=== PATIENT | female | born 1975 | race Asian ===

== ENCOUNTER 2021-09-19 09:13 | Emergency (ER) | payer BC ==
[2021-09-19] MEDS ORDERED: Meclizine HCl 25 MG TAB ONE (09:40)
[2021-09-19] MEDS ORDERED: Dexamethasone 10 MG/ML VIAL ONE (09:40)
[2021-09-19] MEDS ORDERED: Lorazepam 2 MG/ML VIAL ONE (09:41)
[2021-09-19] MEDS ORDERED: Ondansetron PF 4 MG/2 ML Vial ONE (09:41)
[2021-09-19 09:48] LABS: BHCG - Serum Negative (NEGATIVE); Pregs Control Background? CLEAR/WHITE (CLR/WHITE); Pregs Control Bar Appear? YES (CONTROL BAR)
[2021-09-19 09:55] LABS: #Basophils 0.1 10x3/uL (0.0-0.2); #Eosinphils 0.2 10x3/uL (0.0-0.5); #Monocytes 0.6 10x3/uL (0.0-1.1); #Neutrophils 2.7 10x3/uL (1.5-8.4); %Basophils 0.8 % (0.0-2.0); %Eosinophils 2.6 % (0.0-6.0); %Monocytes 9.7 % (0.0-10.0); %Neutrophils 43.7 % (40.0-75.0); Hemoglobin 10.3 g/dL (12.0-15.5); Mean Corpuscular HGB CONC 29.3 g/dL (32.0-36.0); Mean Corpuscular Hemoglobin 16.9 pg (27.0-33.0); Mean Corpuscular Volume 57.7 fl (81.6-98.3); Platelet Count 249 10x3/uL (150-450); RBC Distribution Width 20.3 % (11.5-14.5); White Blood Cell (WBC) Count 6.1 10x3/uL (3.5-10.5)
[2021-09-19 09:59] LABS: ALT (SGPT) 24 U/L (8-55); AST (SGOT) 27 U/L (5-34); Albumin 4.4 g/dL (3.5-5.0); Alkaline Phosphatase 59 U/L (40-110); Anion Gap 13 mmol/L (10-20); BUN (Urea Nitrogen) 16 mg/dL (7.0-18.7); Bilirubin, Total 0.5 mg/dL (0.2-1.2); CK (CPK) 94 U/L (29-168); Calc. Creatinine Clearance 0 mL/min (70-130); Calcium 8.8 mg/dL (7.8-10.44); Carbon Dioxide 25 mmol/L (22-29); Chloride 105 mmol/L (98-107); Globulin 3.4 g/dL (2.4-3.5); Glucose 98 mg/dL (70-105); Potassium 3.8 mmol/L (3.5-5.1); Protein, Total 7.8 g/dL (6.0-8.3); Sodium 139 mmol/L (136-145)
[2021-09-19 10:08] LABS: Microcytosis MODERATE=15-30 cells (100X) (0-5/hpf)
[2021-09-19 10:09] LABS: Hypochromia SLIGHT = 6-15 cells (100X) (0-5/hpf); Ovalocytes SLIGHT = 2-5 cells (100X) (0-1/hpf)
[2021-09-19 10:14] LABS: Platelet Morphology Comment Appears Adequate
== END 2021-09-19 10:55 | disposition home or self-care (01) ==
LOC: CSHERS 09:13
DX: R07.89 Other chest pain (principal); D64.9 Anemia, unspecified; R42 Dizziness and giddiness
CPT/HCPCS: 70450; 71045; 80053; 82550; 84484; 84703; 85025; 85379; 93005; 96374; 96375; J1100; J2060; J2405